=== PATIENT | female | born 1990 | race Two or more races ===

== ENCOUNTER 2018-07-25 07:35 | Inpatient (IN) | payer OTHER ==
[~2018-07-25] VITALS: Ht 162.6 cm; Wt 68.0 kg
[2018-07-25] MEDS ORDERED: PRENATAL TABLE1 EAC1 PO (08:01)
== END 2018-07-27 14:03 | DRG 807 ==
LOC: LDR 07:35 → OB/GYN 07:35
PROVIDERS: ADMIT Obstetrics & Gynecology
PROC: 10E0XZZ Delivery of Products of Conception, External Approach (ICD-10-PCS; principal; 2018-07-25)
PROC: 0HQ9XZZ Repair Perineum Skin, External Approach (ICD-10-PCS; 2018-07-25)
PROC: 3E033VJ Introduction of Other Hormone into Peripheral Vein, Percutaneous Approach (ICD-10-PCS; 2018-07-25)
PROC: 4A1HXCZ Monitoring of Products of Conception, Cardiac Rate, External Approach (ICD-10-PCS; 2018-07-25)
DX: O70.0 First degree perineal laceration during delivery (principal); Z37.0 Single live birth; Z3A.37 37 weeks gestation of pregnancy

== ENCOUNTER 2023-01-12 10:54 | Outpatient (CLI) | payer OTHER ==
[~2023-01-12 10:54] MED LIST: PRENATAL TABLE1 EAC1 PO
== END 2023-01-12 12:16 | disposition home or self-care (01) ==
LOC: PRENATAL 10:54
PROVIDERS: ATTEND Obstetrics & Gynecology Maternal & Fetal Medicine
DX: O35.9XX0 Maternal care for (suspected) fetal abnormality and damage, unspecified, not applicable or unspecified (principal); O35.3XX0 Maternal care for (suspected) damage to fetus from viral disease in mother, not applicable or unspecified; Z3A.19 19 weeks gestation of pregnancy

== ENCOUNTER 2023-03-30 12:39 | Inpatient (IN) | payer OTHER ==
[~2023-03-30] VITALS: Ht 162.6 cm; Wt 68.5 kg
[2023-03-30 13:36] LABS: HEMATOCRIT 35.2 % (36.0-45.00); HEMOGLOBIN 11.1 g/dL (12.0-15.00); MEAN CELL VOLUME 80.9 fL (80.00-100.00); MEAN CORPUSCULAR HEMOGLOBIN 25.6 pg (27.00-32.0); MEAN CORPUSCULAR HGB CONC 31.6 g/dl (32.0-36.0); PLATELET COUNT 256 K/uL (150-450); RED BLOOD COUNT 4.35 M/uL (4.00-6.00); RED CELL DISTRIBUTION WIDTH 13.4 % (11.5-14.5)
== END 2023-04-03 11:33 | disposition home or self-care (01) | DRG 833 ==
LOC: LDR 12:39
PROVIDERS: ADMIT Student in an Organized Health Care Education/Training Program; ATTEND Student in an Organized Health Care Education/Training Program
PROC: 4A1HXCZ Monitoring of Products of Conception, Cardiac Rate, External Approach (ICD-10-PCS; principal; 2023-03-30)
PROC: BY4FZZZ Ultrasonography of Third Trimester, Single Fetus (ICD-10-PCS; 2023-03-30)
DX: O36.8130 Decreased fetal movements, third trimester, not applicable or unspecified (principal); Z3A.30 30 weeks gestation of pregnancy; Z20.822 Contact with and (suspected) exposure to COVID-19; O26.843 Uterine size-date discrepancy, third trimester

== ENCOUNTER 2023-04-20 09:29 | Outpatient (CLI) | payer OTHER | END 2023-04-20 10:10 | disposition home or self-care (01) | LOC: PRENATAL 09:29 | PROVIDERS: ATTEND Obstetrics & Gynecology Maternal & Fetal Medicine | DX: O26.849 Uterine size-date discrepancy, unspecified trimester (principal); O36.8199 Decreased fetal movements, unspecified trimester, other fetus; Z3A.33 33 weeks gestation of pregnancy ==

== ENCOUNTER 2023-05-24 12:16 | Inpatient (IN) | payer OTHER ==
[~2023-05-24] VITALS: Ht 162.6 cm; Wt 71.7 kg
[2023-05-24 14:09] LABS: PH,URINE 6.5 (5.0-8.0); URINE APPEARANCE Cloudy; URINE BILIRRUBIN Negative (NEGATIVE); URINE BLOOD Negative; URINE COLOR Yellow; URINE GLUCOSE Negative (NEGATIVE); URINE LEUKOCYTE Large; URINE NITRATE Negative; URINE PROTEIN Trace (NEGATIVE)
[2023-05-24 14:10] LABS: URINE EPITHELIAL CELLS 107.1 uL (0.0-38.8); URINE RBC 24.4 uL (0.0-20.8); URINE WBC 648.4 uL (0.0-23.2)
[2023-05-24 14:24] LABS: URINE BACTERIA > 9821.5 uL (0.0-1933)
[2023-05-24 14:26] LABS: URINE CRYSTALS NEGATIVE /HPF; URINE YEAST NEGATIVE /hpf
[2023-05-24 14:34] LABS: HEMATOCRIT 38.1 % (36.0-45.00); HEMOGLOBIN 12.5 g/dL (12.0-15.00); INR 0.96; MEAN CORPUSCULAR HEMOGLOBIN 26.2 pg (27.00-32.0); MEAN CORPUSCULAR HGB CONC 32.7 g/dl (32.0-36.0); PARTIAL THROMBOPLASTIN TIME 29.1 SECONDS (22.0-34.0); PLATELET COUNT 243 K/uL (150-450); PROTHROMBIN TIME 10.1 SECONDS (9.0-11.5); RED BLOOD COUNT 4.76 M/uL (4.00-6.00); RED CELL DISTRIBUTION WIDTH 14.8 % (11.5-14.5)
[2023-05-24 14:35] LABS: ALBUMIN 3.1 gm/dL (3.4-5.0); BILIRUBIN TOTAL 0.5 mg/dL (0.3-1.2); CALCIUM 9.5 mg/dL (8.5-10.1); CREATININE SERUM 0.42 mg/dL (0.55-1.02); GFR 177.15; GLOBULINA 4.1 G/DL (2.4-3.5); POTASSIUM 4.25 mEq/L (3.5-5.1); TOTAL PROTEIN 7.2 gm/dL (6.4-8.2)
[2023-05-24 16:48] LABS: ABG PH 7.373 (7.35-7.45); ABG PO2 28.7 mmHg (80-100); BASE EXCESS -4.9 mmol/l; BICARBONATE 19.4 mmol/l (23-25); SaO2 50.9 %
[2023-05-24 16:50] LABS: Tco2 20.4 mmol/l; o2 21 %
== END 2023-05-26 13:30 | disposition home or self-care (01) | DRG 807 ==
LOC: LDR 12:16 → OB/GYN 17:41
PROVIDERS: ADMIT Obstetrics & Gynecology; ATTEND Obstetrics & Gynecology
PROC: 10E0XZZ Delivery of Products of Conception, External Approach (ICD-10-PCS; principal; 2023-05-24)
PROC: 4A1HXCZ Monitoring of Products of Conception, Cardiac Rate, External Approach (ICD-10-PCS; 2023-05-24)
DX: O80 Encounter for full-term uncomplicated delivery (principal); Z37.0 Single live birth; Z3A.38 38 weeks gestation of pregnancy; Z20.822 Contact with and (suspected) exposure to COVID-19